=== PATIENT | male | born 1960 | race Caucasian/White ===

== ENCOUNTER 2018-05-23 18:00 | Outpatient (CLI) | payer BC, OTHER | END 2018-05-23 18:01 | disposition home or self-care (01) | LOC: SLEEPLAB 18:00 | PROVIDERS: ATTEND Family Medicine | DX: G47.10 Hypersomnia, unspecified (principal); G47.33 Obstructive sleep apnea (adult) (pediatric); R53.83 Other fatigue; R40.0 Somnolence; R06.83 Snoring; Z68.26 Body mass index [BMI] 26.0-26.9, adult | CPT/HCPCS: 95806 ==

== ENCOUNTER 2021-11-09 14:58 | Outpatient (CLI) | payer BC, OTHER | END 2021-11-09 14:59 | disposition home or self-care (01) | LOC: BICRAD 14:58 | PROVIDERS: ATTEND Family Medicine | DX: R05.3 Chronic cough (principal) | CPT/HCPCS: 71046 ==

== ENCOUNTER 2022-05-09 10:29 | Outpatient (CLI) | payer BC ==
[2022-05-09] MEDS ORDERED: Iopamidol 370 76% 100 ML VIAL ONE (14:09)
== END 2022-05-09 10:30 | disposition home or self-care (01) ==
LOC: CT 10:29
PROVIDERS: ATTEND Family Medicine
DX: R14.0 Abdominal distension (gaseous) (principal)
CPT/HCPCS: 74160; 82565; Q9967